=== PATIENT | female | born 1940 | race Caucasian/White ===

== ENCOUNTER 2021-04-12 10:32 | Emergency (ER) | payer MEDICARE, SELFPAY ==
[2021-04-12 11:00] VITALS: BP 141/95; PULSE 101; RESP 18; TEMP 36.5; O2SAT 97; BMI 20.9
--- NOTE | 2021-04-12 11:46 | ED.GENADULT ---
HPI - General Adult General Chief complaint: General Medical Stated complaint: dehydration,dizziness Time Seen by Provider: 04/12/21 11:46 Source: patient Mode of arrival: ambulatory Limitations: no limitations History of Present Illness HPI narrative: patient with recent compression fracture on oxycodone. Patient ended up with severe constipation eventually took a laxative. Patient has been drinking fluids but now having diarrhea. Today feeling weak and lightheaded. Onset (ago): day(s) Severity: mild Pain Consistency: constant Exacerbating factors: none Related Data Home Medications Medication Instructions Recorded Confirmed amlodipine 5 mg tablet 5 mg PO DAILY 03/23/21 03/23/21 letrozole 2.5 mg tablet 2.5 mg PO DAILY 03/23/21 03/23/21 lisinopril 40 mg tablet 40 mg PO DAILY 03/23/21 03/23/21 simvastatin 20 mg tablet 20 mg PO QPM 03/23/21 03/23/21 Previous Rx's Medication Instructions Recorded prednisone 20 mg tablet 20 mg PO .COMPLEX #18 tab 03/23/21 gabapentin 100 mg PO BID #20 cap 04/12/21 Allergies Allergy/AdvReac Type Severity Reaction Status Date / Time No Known Allergies Allergy Verified 04/12/21 10:59 [No Known Allergies*] Review of Systems Constitutional: Constitutional: Reports no additional constitutional complaints Eyes: Eyes: Reports no additional eye complaints ENT: Denies dizziness Cardiovascular: Cardiovascular: Reports no additional cardiovascular complaints Respiratory: Respiratory: Reports as per HPI Gastrointestinal: Gastrointestinal: Reports no additional gastrointestinal complaints Genitourinary: Genitourinary: Reports no additional female genitourinary complaints Musculoskeletal: Musculoskeletal: Reports no additional musculoskeletal complaints Integumentary/Breasts: Skin/Breast: Denies rash Neurologic: Reports system reviewed and no additional complaints, except as documented, Denies dizziness and Denies Sensory deficit (Neuro) Psychiatric: Psychiatric: Denies anxiety [facility] Past Medical History Medical History Breast cancer Compression fracture Diverticulitis High cholesterol Hypertension Osteoporosis Social History Social History Alcohol intake: never Patient Tobacco Use Status: Never used Tobacco Use of substances other than those prescribed or required for medical reasons: No Advance Directives: No Advance Directives Information Provided: No Physical Exam Vital Signs: Vital Signs: Last Vital Signs Temp 97.7 F 04/12/21 11:00 Pulse 83 04/12/21 12:48 Resp 17 04/12/21 12:48 BP 144/86 H 04/12/21 12:48 Pulse Ox 99 04/12/21 12:48 Body Mass Index 20.9 Const: Other: Thin frail female lying comfortably Orientation/consciousness: oriented to person and patient oriented x3 Limitations: no limitations HENMT: Head: Yes normal to inspection Ears: external ears normal General nose exam: Normal external nose present Mouth: Normal oral and palatal mucosa present and oropharynx normal Throat: Yes posterior oropharynx normal Eyes: General: appearance normal, both eyes and all related structures Neck: Other: supple Neck: Yes normal visual inspection Chest: Chest palpation & inspection: normal inspection of the chest Resp: Auscultation: clear to auscultation bilaterally Cardio: Other: tachycardic Rate: regular rate Rhythm: regular rhythm Heart sounds: S1 normal heart sound present and S2 normal heart sound present GI: Inspection: Yes normal to inspection Palpation (GI): Soft to palpation, nontender and No hepatosplenomegaly present Auscultation: normal bowel sounds : Other: rectal no fecal impaction General: Yes no CVA tenderness Back/Spine/Pelvis: Back: no CVA tenderness Skin: General skin exam: no rashes or lesions noted Neuro: General: oriented to person and patient oriented x3 Cranial nerves: Yes CN's II-XII intact bilaterally Motor exam (neuro): 5/5 motor strength present throughout Sensory Exam: No Sensory deficit (Neuro) Extrem: General: Yes normal to inspection Psych: Appearance: grossly normal Course Reevaluation(s) Reevaluation #1: EKG and blood work were normal, will start patient on gabapentin for radicular back pain. Will dc home Time: 13:33 Medical Decision Making Lab Data Result diagrams: 04/12/21 12:07 04/12/21 12:07 Labs: Lab Results 04/12/21 04/12/21 04/12/21 Range/Units 12:07 12:07 12:07 WBC 8.3 (4.8-10.8) X10*3/uL RBC 4.63 (4.20-5.50) X10*6/uL Hgb 12.2 (12.0-16.0) g/dl Hct 38.6 (37-47) % MCV 83.4 (80-98) fL MCH 26.3 L (27.0-33.0) pg MCHC 31.6 (31.0-35.0) g/dl RDW 15.9 (11.0-16.0) % Plt Count 390 (160-400) X10*3/uL MPV 10.5 (9.4-12.3) fL Immature Gran % (Auto) 0.2 (0.0-0.4) % Neut % (Auto) 77.3 H (45-73) % Lymph % (Auto) 13.8 L (20-40) % [place] % (Auto) 7.2 (2-11) % Eos % (Auto) 1.0 (0-4) % Baso % (Auto) 0.5 (0-2) % Lymph # (Auto) 1.1 L (1.2-4.9) X10*3/uL [place] # (Auto) 0.6 (0.1-1.2) X10*3/uL Eos # (Auto) 0.1 (0.0-0.4) X10*3/uL Baso # (Auto) 0.0 (0.0-0.2) X10*3/uL Abs Immat Gran (auto) 0.02 (0.00-0.03) X10*3/uL Absolute Neuts (auto) 6.4 (2.0-8.3) X10*3/uL Absolute Nucleated RBC 0.000 (0.0-0.012) X10*3/uL Nucleated RBC % (auto) 0.0 (0.0-0.2) /100WBC Sodium 139 (135-145) mmol/L Potassium 4.4 (3.3-5.1) mmol/L Chloride 101 (96-108) mmol/L Carbon Dioxide 31 H (22-29) mmol/L Anion Gap 11 L (12-20) BUN 8 L (9-16) mg/dL Creatinine 0.71 (0.5-1.4) mg/dL Estim Creat Clear Calc 43.1 Estimated GFR > 60 Random Glucose 97 (60-115) mg/dL Calcium 10.2 (8.4-10.2) mg/dL Troponin I High Sens 5.3 (<3.5-17.0) ng/L Discharge Plan Discharge Clinical Impression: Acute radicular low back pain, Compression fracture Patient Disposition: Home, Self-Care Instructions: Vertebral Compression Fracture (ED), Acute Low Back Pain (ED) Prescriptions: New gabapentin 100 mg capsule 100 mg PO BID Qty: 20 RF: 0 No Action letrozole 2.5 mg tablet 2.5 mg PO DAILY RF: 0 lisinopril 40 mg tablet 40 mg PO DAILY RF: 0 simvastatin 20 mg tablet 20 mg PO QPM RF: 0 amlodipine 5 mg tablet 5 mg PO DAILY RF: 0 prednisone 20 mg tablet 20 mg PO .COMPLEX Qty: 18 RF: 0 Referrals: Nadine Zacarias MD [Primary Care Provider] - 5 days
--- NOTE | 2021-04-12 11:56 | ECG_ITS ---
Test Reason : DIZZINESS Blood Pressure : / mmHG Vent. Rate : 089 BPM Atrial Rate : 089 BPM P-R Int : 136 ms QRS Dur : 078 ms QT Int : 358 ms P-R-T Axes : 028 -21 017 degrees QTc Int : 435 ms Sinus rhythm with occasional Premature ventricular complexes Otherwise normal ECG When compared with ECG of 23-APR-2020 10:32, No significant change was found Referred By: Kenan Rodríguez Electronically Signed By:Palomo Gonzalez
[2021-04-12 12:36] LABS: MANUAL DIFF FLAG NO
[2021-04-12 12:39] LABS: Basophils Percent Auto 0.5 % (0-2); Eosinophils Absolute Auto 0.1 X10*3/uL (0.0-0.4); Hematocrit 38.6 % (37-47); Hemoglobin 12.2 g/dl (12.0-16.0); Imm Gran Abs Auto 0.02 X10*3/uL (0.00-0.03); Imm Gran Pct Auto 0.2 % (0.0-0.4); Lymphocytes Absolute Auto 1.1 X10*3/uL (1.2-4.9); Lymphocytes Percent Auto 13.8 % (20-40); Mean Corpuscular HGB Conc 31.6 g/dl (31.0-35.0); Mean Corpuscular Hemoglobin 26.3 pg (27.0-33.0); Mean Corpuscular Volume 83.4 fL (80-98); Mean Platelet Volume 10.5 fL (9.4-12.3); Monocytes Absolute Auto 0.6 X10*3/uL (0.1-1.2); Monocytes Percent Auto 7.2 % (2-11); Neutrophils Absolute Auto 6.4 X10*3/uL (2.0-8.3); Neutrophils Percent Auto 77.3 % (45-73); Platelet Count 390 X10*3/uL (160-400); Red Blood Count 4.63 X10*6/uL (4.20-5.50); Red Cell Distribution Width 15.9 % (11.0-16.0); White Blood Count 8.3 X10*3/uL (4.8-10.8)
[2021-04-12] MEDS: 0.9 % Sodium Chloride 1,000 ML 999 ML IVCONT (12:44)
[2021-04-12 12:48] VITALS: BP 144/86; PULSE 83; RESP 17; O2SAT 99
[2021-04-12 13:08] LABS: Anion Gap 11 (12-20); Blood Urea Nitrogen 8 mg/dL (9-16); Calcium 10.2 mg/dL (8.4-10.2); Carbon Dioxide 31 mmol/L (22-29); Chloride 101 mmol/L (96-108); Creatinine Clr Calc Pharmacy 43.1; Estimated Glomerular Filt Rate > 60; Glucose Random 97 mg/dL (60-115); Potassium 4.4 mmol/L (3.3-5.1); Sodium 139 mmol/L (135-145)
[2021-04-12 13:11] LABS: Troponin-I High Sensitivity 5.3 ng/L (<3.5-17.0)
--- NOTE | 2021-04-12 13:32 | PC.NURSE ---
Patient is resting quietly in bed in no distress. IV fluids infusing. IV site is patent.
== END 2021-04-12 14:24 | disposition home or self-care (01) ==
PROVIDERS: Emergency Provider Emergency Medicine; PCP Internal Medicine
DX: M54.5 Low back pain (principal); M48.50XD Collapsed vertebra, not elsewhere classified, site unspecified, subsequent encounter for fracture with routine healing; K59.00 Constipation, unspecified; R19.7 Diarrhea, unspecified; I10 Essential (primary) hypertension; Z79.891 Long term (current) use of opiate analgesic; Z79.899 Other long term (current) drug therapy
CPT/HCPCS: 36415; 80048; 84484; 85025; 93005; 96360; 96361; 99284

== ENCOUNTER 2023-03-31 15:18 | Emergency (ER) | payer MEDICARE, SELFPAY ==
[2023-03-31 15:26] VITALS: BP 140/100; PULSE 90; RESP 18; TEMP 36.7; O2SAT 98; BMI 20.9
--- NOTE | 2023-03-31 15:28 | ED_ITS ---
HPI - General Adult General Chief complaint: Animal Bite Stated complaint: Bee stings Time Seen by Provider: 03/31/23 17:22 History of Present Illness HPI narrative: Patient complains of bee stings to the left thumb and forearm sustained yesterday, it was very itchy and woke her up last night, there is no pain, there is no other rash there is no difficulty breathing or swallowing no swelling of lips or tongue no dizziness no faintness no shortness of breath no trouble breathing Related Data Home Medications Medication Instructions Recorded Confirmed amlodipine 5 mg tablet 5 mg PO DAILY 03/23/21 03/23/21 letrozole 2.5 mg tablet 2.5 mg PO DAILY 03/23/21 03/23/21 lisinopril 40 mg tablet 40 mg PO DAILY 03/23/21 03/23/21 simvastatin 20 mg tablet 20 mg PO QPM 03/23/21 03/23/21 Previous Rx's Medication Instructions Recorded prednisone 20 mg tablet 20 mg PO .COMPLEX #18 tabs 03/23/21 gabapentin 100 mg capsule 100 mg PO BID #20 caps 04/12/21 hydrocortisone 2.5 % topical cream 1 appl topical BID PRN 03/31/23 Rash/itching #20 grams Allergies Allergy/AdvReac Type Severity Reaction Status Date / Time No Known Allergies Allergy Verified 04/12/21 10:59 [No Known Allergies*] [facility] Past Medical History Source: nursing notes reviewed Medical History Breast cancer Compression fracture Diverticulitis High cholesterol Hypertension Osteoporosis Social History Social History Alcohol intake: never Patient Tobacco Use Status: Never used Tobacco Advance Directives: No Advance Directives Information Provided: No Physical Exam ED Vital Signs: Vital Signs - 24 hr 03/31/23 15:26 Temperature 98.1 F Pulse Rate 90 Respiratory Rate 18 Blood Pressure 140/100 H Pulse Oximetry 98 Oxygen Delivery Method Room Air BMI result Body Mass Index 20.9 General appearance is no distress comfortable cooperative Eyes no redness or discharge The pharynx is clear without swelling of lips tongue or uvula membranes moist no redness swelling or exudate, voice normal Neck is supple Chest is clear to auscultation bilateral The skin exam there are 2 small bite wound moreira on left thumb and left forearm with mild surrounding erythema, it is not warm it is not tender, no swelling, full range of motion in all fingers and wrist, redness is slight and very localized around the bite moreira not consistent with cellulitis likely local inflammation Extremities full range of motion x4 Course Course Course Narrative: RME: 83 yold female presents to the ED for right thumb redness, itchy rash, swelling and right forearm area of redness wiht itcihness after being bittin by bee sting yesterday. negative for swelling lips, shortness of breath, allan swelling, sensation of throat closing, or spreading rash. Patient with local inflammation from bug bites, no cellulitis no systemic involvement comfortable breathing easily no swelling of lips or tongue no dizziness is discharged with prescription for hydrocortisone cream Discharge Plan Discharge Clinical Impression: Insect bite Patient Disposition: Home, Self-Care Additional Instructions: You have localized allergic irritation to the bug bites on arm and hand There is no cellulitis or infection, no sign of any dangerous allergic reaction in her body Use hydrocortisone cream as needed, you could also apply calamine lotion, ice sometimes helps relieve in a itch for brief period of time Return any time any worse condition or any concerns Prescriptions: New hydrocortisone 2.5 % cream 1 appl topical BID PRN (Reason: Rash/itching) Qty: 20 0RF No Action gabapentin 100 mg capsule 100 mg PO BID Qty: 20 0RF letrozole 2.5 mg tablet 2.5 mg PO DAILY lisinopril 40 mg tablet 40 mg PO DAILY simvastatin 20 mg tablet 20 mg PO QPM amlodipine 5 mg tablet 5 mg PO DAILY prednisone 20 mg tablet 20 mg PO .COMPLEX Qty: 18 0RF Rx Instructions: 20 mg PO 3 p.o. daily for 3 days followed by 2 p.o. daily for 3 days followed by 1 p.o. daily for 3 days;
[2023-03-31 17:52] VITALS: BP 137/83; PULSE 84; RESP 16; O2SAT 98
== END 2023-03-31 17:54 | disposition home or self-care (01) ==
PROVIDERS: Emergency Provider Internal Medicine; PCP Internal Medicine
DX: R21 Rash and other nonspecific skin eruption (principal); Z79.899 Other long term (current) drug therapy
CPT/HCPCS: 99283; 99284

== ENCOUNTER 2024-12-22 13:00 | Outpatient (AMB) | payer MEDICARE, SELFPAY ==
--- NOTE | 2024-12-22 13:18 | AM.OFFWIN_ITS ---
Intake Vital Signs 12/22/24 13:19 Weight 112 lb BP 110/70 Blood Pressure Location Rt brachial Position Sitting Pulse 106 H Pulse Source Pulse Oximeter Temp 99.8 F Temp Source Oral Pulse Oximetry (%) 97 Oxygen Delivery Method Room Air Intake Visit Reasons: EP congestion, chest cough Intake Note: Patient here for cough, congestion and chest congestion that started 2 days ago. Patient Tobacco Use Status: Never used Tobacco Allergies No Known Allergies [No Known Allergies*] Allergy (Verified 12/22/24 13:26) Do you need a note to return to daycare/school/sports/work: No HPI HPI Comments History of Present Illness Details History The patient is an 84-year-old female presenting with acute congestion, cough, fatigue, subjective fever and nausea. - The congestion started two days ago an d includes both head and chest symptoms. Coughing exacerbates the discomfort, preventing adequate sleep. - Nausea began yesterday, with no actual vomiting although the sensation of queasiness persisted. Diarrhea this morning, nothing bloody or black. - She has consumed minimal fluids. - Mild wheezing and past surgical histor y of breast cancer with mets to the right lung s/p removal of the tumor were mentioned, denies history of COPD, asthma, or smoking. Physical Exam General: Cooperative, healthy appearing, comfortable and no acute distress Orientation/consciousness: Patient oriented x3 Limitations: No limitations Head: Normal to inspection Ears: Hearing grossly normal bilaterally, external ears normal and TM's normal bilaterally Nose: Normal external nose present, Normal nares present and No nasal discharge present Face and sinus: Normal facial exam and Yes sinuses nontender Mouth: Normal oral and palatal mucosa present and moist mucous membranes Throat: Yes tonsils normal, Yes uvula midline. Posterior oropharynx erythema Eyes: Appearance normal, both eyes and all related structures Neck: Normal visual inspection Respiratory: dim to auscultation bilaterally. Normal respiratory effort, able to speak in complete sentences, Actively coughing, no respiratory distress, not tachypneic, no tripod positioning and no use of accessory muscles Cardiovascular: Regular rate and rhythm. Normal S1 and S2 Skin: No rashes or lesions noted Neuro: Patient oriented x3 Extremities: Normal to inspection and Yes no clubbing, cyanosis or edema PFSH Medical History Breast cancer Compression fracture Diverticulitis High cholesterol Hypertension Osteoporosis Social History Alcohol intake: never Patient Tobacco Use Status: Never used Tobacco Review of Systems Const All systems reviewed & are unremarkable except as noted in HPI and below Physical Exam Vital Signs: Last Vital Signs Temp 99.8 F 12/22/24 13:19 Pulse 106 H 12/22/24 13:19 BP 110/70 12/22/24 13:19 Pulse Ox 96 12/22/24 13:19 Oxygen Delivery Method Room Air 12/22/24 13:19 Assessment & Plan Assessment & Plan (1) Lower respiratory infection (e.g., bronchitis, pneumonia, pneumonitis, pulmonitis): Code(s): J22 - Unspecified acute lower respiratory infection Plan: Plan A chest x-ray has been arranged to assess for pneumonia. Recommendations include initiating an Vida-D regimen for congestion and maintaining hydration via electrolyte solutions such as sugar-free Gatorade to address dehydration. Due to her high blood pressure, Coricidin is suggested. I will notify the patient about potential Tamiflu therapy depending on flu confirmation and her gastrointestinal tolerance. A prescribed cough suppressant aims to improve sleep, with guidance on its prudent use during the day. We await results for flu, COVID-19, and RSV, with further plans contingent upon those findings, particularly concerning antibiotic therapy for potential pneumonia. Patient was informed and verbally consented to the use of an ambient scribe for clinic note documentation during this visit Orders: Orders SARS-CoV2/FLU/RSV Today R09.89 - Other specified symptoms and signs involving the circulatory and respiratory systems XR chest 2V Today R05.9 - Cough, unspecified Medications: New benzonatate 200 mg PO BEDTIME PRN 10 caps 0RF cough Coding Level of Care Code New Pt Level 4 (95981) Diagnoses Lower respiratory infection (e.g., bronchitis, pneumonia, pneumonitis, pulmonitis) J22
[2024-12-22 13:19] VITALS: BP 110/70; PULSE 106; TEMP 37.7; O2SAT 97
--- OUTSIDE RECORDS SUMMARY | 2024-12-22 16:10 | XMS_ITS | Clinical Summary ---
Author Organization [facility] Address [address] [place] [address] Care Team Providers Care Snow Groomer Name Role Phone Nadine Zacarias MD Primary Care Provider [phone] Allergies No known active allergies Medications Medication Sig Dispensed Refills Start Date End Date Status lisinopril (PRINIVIL,ZESTRIL) tablet 40 mg Take 1 tablet (40 mg total) by mouth daily. 0 Active amLODIPine (NORVASC) tablet 5 mg Take 1 tablet (5 mg total) by mouth daily. 0 Active indapamide (LOZOL) 1.25 MG tablet Take 1 tablet (1.25 mg total) by mouth every morning. 0 Active simvastatin (ZOCOR) tablet 20 mg Take 1 tablet (20 mg total) by mouth every night at bedtime. 0 Active Calcium Carbonate (CALCIUM 600 PO) Take by mouth. 0 Acti ve alendronate (FOSAMAX) tablet 70 mg Take 1 tablet (70 mg total) by mouth every 7 days. Take with water on empty stomach/Nothing by mouth and do not lie down for next 30 minutes 0 Active Cholecalciferol (VITAMIN D3) 2000 units TABS Take 400 Units by mouth daily. 0 Active Acetaminophen-Codeine 300-30 MG per tablet Take 1 tablet by mouth every 4 (four) hours as needed for pain. 0 Active letrozole (FEMARA) 2.5 MG tablet TAKE ONE TABLET BY MOUTH EVERY DAY 30 tablet 11 08/09/2024 Active Active Problems Problem Noted Date Diagnosed Date Age related osteoporosis 11/12/2022 Primary malignant neoplasm of breast with metast asis 09/19/2018 Malignant neoplasm of overla pping sites of left breast in female, estrogen receptor positive 09/19/2018 Social History Tobacco Use Types Packs/Day Years Used Date Smoking Tobacco: Never Assessed Sex and Gender Information Value Date Recorded Sex Assigned at Not on file Gender Identity Not on file Sexual Orientation Not on file Job Start Date Occupation Industry Not on file Not on file Not on file Last Filed Vital Signs Vital Sign Reading Time Taken Comments Blood Pressure 144/67 06/12/2024 10:01 AM EDT Pulse 83 06/12/2024 10:01 AM EDT Temperature 36.6 ??C (97.8 ??F) 06/12/2024 10:01 AM E DT Respiratory Rate - - Oxygen Saturation 97% 06/12/2024 10:01 AM EDT Inhaled Oxygen Concentration - - Weight 52.4 kg (115 lb 9.6 oz) 12/13/2023 10:53 AM EST Height 149.9 cm (4' 11 ) 06/13/2023 10:13 AM EDT Body Mass Index 23.35 06/13/2023 10:13 AM EDT Plan of Treatment Health Maintenance Due Date Last Done Comments Pneumococcal Vaccine (1 of 2 - PCV) 1947 Depression Screening 1953 Preventative Health Evaluation 1959 DTap / Tdap / Td (1 - Tdap) 02/02/1960 Shingrix-Zoster Vaccine (1 o f 2) 02/02/1960 Fall Risk Assessment 2006 Osteoporosis Screening (DEXA Scan) 2006 RSV Adult > 60+ Yrs or (1 - 1-dose 75+ series) 02/02/2016 COVID-19 Vaccine (3 - Pfizer risk series) 01/18/2021 12/21/2020, 11/30/2020 Influenza Vaccine (#1) 2024 Hepatitis B Vaccines Aged Out No long er eligible based on patient's age to complete this topic RSV Ped < 20 months Aged Out No longe r eligible based on patient's age to complete this topic Care Teams Snow Groomer Relationship Specialty Start Date End Date Nadine Zacarias MD [address] [place] [id number] PCP - General Internal Medicine 03/30/19
--- OUTSIDE RECORDS SUMMARY | 2024-12-22 16:10 | XMS_ITS | Clinical Summary ---
Author Organization [facility] Address [address] [place] [address] Phone Care Team Providers Care Parking Assistant Name Role Phone Nadine Zacarias MD Primary Care Provider [phone] Allergies No known active allergies Medications calcium carbonate (CALCIUM 600 ORAL) Take by mouth. Active acetaminophen-c odeine (TYLENOL #3) 300-30 mg per tablet Take 1 tablet by mouth Every 4 hours as needed (for pain.). Active alendronate (FOSAMAX) 70 mg tablet Take 1 tablet (70 mg total) by mouth every 7 (seven) days. Take with water on empty stomach/Noth ing by mouth and do not lie down for next 30 minutes Active amLODIPine (NORVASC) 5 mg tablet Take 1 tablet (5 mg total) by mouth 1 (one) time each day. Active cholecalciferol (VITAMIN D-3) 50 mcg (2,000 unit) tablet Take 400 Units by mouth 1 (one) time each day. Active indapamide (LOZOL) 1.25 mg tablet Take 1 tablet (1.25 mg total) by mouth 1 (one) time each day in the morning. Active letrozole (FEMARA) 2.5 mg tablet Take 1 tablet (2.5 mg total) by mouth 1 (one) time each day 08/19/2023 Active lisinopril (PRINIVIL,ZESTR IL) 40 mg tablet Take 1 tablet (40 mg total) by mouth 1 (one) time each day. Active simvastatin (ZOCOR) 20 mg tablet Take 1 tablet (20 mg total) by mouth at bedtime. Active Active Problems Problem Noted Date Diagnosed Date Malignant neoplasm of overla pping sites of left breast in female, estrogen receptor positive 07/03/2024 Age related osteoporosis 11/12/2022 Primary malignant neoplasm of breast with metast asis 09/19/2018 Encounters Date Type Department Care Team Description 12/15/2024 10:15 AM EST Office Visit [facility] Hematology Oncology [address] [place] [address] Herminio Pereyra MD Primary malignant neoplasm of breast with metastasis (CMS/HCC) (Primary Dx); Malignant neoplasm of overlapping sites of left breast in female, estrogen receptor positive (CMS/HCC) 10/28/2024 Telephone [facility] Hematology Oncology [address] [place] [address] Cori Jenkins MA Chest CT Appt from Last 3 Months Immunizations Name Administration Dates Next Due Pfizer SARS-CoV-2 COVID-19, mRNA, LNP-S, preservative free 12/21/2020,11/30/2020 Medical History Medical History Date Comments Breast cancer (CMS/HCC) DX:Breas t cancer (HCC) Hypertension DX:Hypertension Social History Tobacco Use Types Packs/Day Years Used Date Smoking Tobacco: Never Assessed Comments Unknown Sex and Gender Information Value Date Recorded Sex Assigned at Not on file Legal Sex Female 7:41 AM EST Gender Identity Not on file Sexual Orientation Not on file Obstetrics History Last Filed Vital Signs Vital Sign Reading Time Taken Comments Blood Pressure 122/72 12/15/2024 10:12 AM EST Pulse 92 12/15/2024 10:12 AM EST Temperature 37 ??C (98.6 ??F) 12/15/2024 10:12 AM EST Respiratory Rate - - Oxygen Saturation 98% 12/15/2024 10:12 AM EST Inhaled Oxygen Concentration - - Weight 51.7 kg (114 lb) 12/15/2024 10:12 AM EST Height 149.9 cm (4' 11 ) 06/13/2023 10:13 AM EDT Body Mass Index 23.03 06/13/2023 10:13 AM EDT Plan of Treatment Upcoming Encounters Date Type Department Care Team (Late st Contact Info) Description 06/15/2025 10:15 AM EDT Office Visit [facility] Hematology Oncology [address] [place] [address] Herminio Pereyra MD [address] [place] [address] Health Maintenance Due Date Last Done Comments DTaP,Tdap,and Td Vaccines (1 - Tdap) 02/02/1960 Zoster Vaccines (1 of 2) 02/02/1960 Cholesterol Screening (Lipid Panel) 09/29/2022 Depression Screening 09/29/2022 Falls Risk Assessment 09/29/2022 Osteoporosis Screening (Bone Density Screening) 09/29/2022 Social Influencers of Health Screening 09/29/2022 Medicare Annual Wellness Visit 08/03/2023 08/03/2022 Hypertension/CHF/CAD Annual BMP Blood Test 12/05/2025 12/05/2024 Pneumococcal Vaccine: 50+ Years Completed 07/04/2023 Influenza Vaccine Completed 08/05/2024, , 07/27/2022, Additional history exists COVID-19 Vaccine Completed 08/12/2024, 10/2022, 07/25/2022, Additional history exists RSV Immunization Patients 60+ Years Old Completed 09/04/2024 HIB Vaccines Aged Out No longer eligi ble based on patient's age to complete this topic HPV Vaccines Aged Out No longer eligi ble based on patient's age to complete this topic Hepatitis A Vaccines Aged Out No long er eligible based on patient's age to complete this topic Hepatitis B Vaccines Aged Out No long er eligible based on patient's age to complete this topic IPV Vaccines Aged Out No longer eligi ble based on patient's age to complete this topic MMR Vaccines Aged Out No longer eligi ble based on patient's age to complete this topic Meningococcal ACWY Vaccine Aged Out N o longer eligible based on patient's age to complete this topic Meningococcal B Vacine Aged Out No lo nger eligible based on patient's age to complete this topic RSV Immunization Patients Under 20 months Aged Out No longer eligible based on patient's age to complete this topic Varicella Vaccines Aged Out No longer eligible based on patient's age to complete this topic Insurance [facility]IC[facility] Care Teams Parking Assistant Relationship Specialty Start Date End Date Nadine Zacarias MD [address] [facility] [address] [id number] PCP - General Internal Medicine 03/30/19
--- OUTSIDE RECORDS SUMMARY | 2024-12-22 16:10 | XMS_ITS | Encounter Summary ---
Author Organization [facility] Address [id number] [place] [phone] Care Team Providers Care Surveillance Director Name Role Phone Nadine Zacarias MD Primary Care Provider Reason for Visit * Reason Comments Follow-up Encounter Details Date Type Department Care Team (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, estrogen receptor positive (CMS/HCC) Social History Tobacco Use Types Packs/Day Years Used Date Smoking Tobacco: Never Assessed Comments Unknown Sex and Gender Information Value Date Recorded Sex Assigned at Not on file Legal Sex Female 7:41 AM EST Gender Identity Not on file Sexual Orientation Not on file documented as of this encounter Last Filed Vital Signs Vital Sign Reading Time Taken Comments Blood Pressure 122/72 12/15/2024 10:12 AM EST Pulse 92 12/15/2024 10:12 AM EST Temperature 37 ??C (98.6 ??F) 12/15/2024 10:12 AM EST Respiratory Rate - - Oxygen Saturation 98% 12/15/2024 10:12 AM EST Inhaled Oxygen Concentration - - Weight 51.7 kg (114 lb) 12/15/2024 10:12 AM EST Height - - Body Mass Index 23.03 06/13/2023 10:13 AM EDT documented in this encounter Progress Notes * Herminio Pereyar MD - 12/15/2024 10:15 AM EST Diagnosis/treatment: Recurrent mucinous breast carcinoma. The patient remains on Femara since 2001. Interval history: The patient is a 84 yo F who presented in 1993 with a left-sided early stage mucinous breast cancertreated with lumpectomy and radiation. She had 2 sites of disease at 0.8 cm and 0.5 cm in the left breast at presentation. In 1997, she developed a locally recurrent left breast mucinous cancer, along with 2 sites of metastatic disease in the right lung within the same segment. She underwent a segmentectomy and started tamoxifen. In 2001, she had an enlarging right hilar node, which was the solitary site of recurrence by PET/CT. She underwent radiation to the right hilum. She has been on Femara since 2001 and tolerates it well despite some hot flashes and night sweats. She denies arthralgias. A DEXA scan in 04/2017 showed osteoporosis with a T score of -4.8 in the L spine, slightly worsened since a 10/2014 DEXA scan. A DEXA scan in 05/2019 showed osteoporosis with a T score of - 5.0 in the L-spine, slightly worsened compared with the previous DEXA scan in 04/2017. A DEXA scan in 07/2021 showed worsening osteoporosis with a T score of - 5.4 in the L-spine. The patient takes calcium and vitamin D. She took Fosamax in the past. She receives Reclast annually. She is following by an universal banker, Dr. Yanez. Serial CXRs showed no evidence of thoracic progression. A CXR on 01/16/2017 showed slightly increased prominence of the right hilum compared to the 05/23/[address] with contrast on 01/23/2017 showed no abnormality in the right hilum. There was a 1.3 cm hypodense lesion in the superior segmentof the right lobe of the liver. She fell on 03/21/2017 and developed upper back pain. A plain film showed a T5 compression fracture. The pain has lessened considerably and only occurs with overuse. The pain has not progressed over the last interval. A C/A/P CT on 09/09/2017 showed the T5 compression fracture and a stable liver cyst and no other findings. A CXR on 03/05/2019 showed right hilar prominence. There was a right lower lobe patchy opacity corresponding to the previously seen area of fibrosis and bronchiectasis with a possible 1.4 cm nodular spiculated density. A chest CT with contrast on 04/06/2019 showed stable findings compared to the 08/[address] without contrast on 04/12/2020 showed stable findings. She developed abdominal pain and diarrhea in 04/2020. She was admitted to [facility]. Alaina/P CT with IV and without oral contrast showed an acute colitis in the descending and sigmoid colon. A 1.0 cm cyst was seen in the hepatic segment 6 (15 HU). She completed a course of antibiotics and the symptoms resolved. She developed abdominal pain and tenderness following a meal in late 08/2021, which resolved. An A/P CT with IV and oral contrast on 09/21/2021 at [facility] showed a stable right hepatic lobe cyst and was otherwise unremarkable. She developed a sudden onset of bilateral lower back pain in mid-03/2021. A lumbar spine MRI on 04/03/2021 showed an acute moderate L4 superior endplate compression fracture with benign characteristics. The pain has lessened with conservative measures. She developed intermittent right hip pain radiating down her right leg, worse at bedtime, in 04/2021, which resolved. She took Tylenol with codeine at nighttime with relief. She reports an intact appetite. She reports weight loss from 122 pounds on 04/15/2020 down to 101 pounds on 05/12/2021 due to the abdominal issues and pain issues. Her weight was stable over the last interval. A chest CT with contrast on 11/03/2021 showed new diffuse circumferential wall thickening of the thoracic aorta and visualized abdominal aorta. There was a new 0.2 cm left upper lobe nodule. She was evaluated by a vascular surgeon, Dr. Duran, who assessed late radiation effect. She was evaluated by a director global strategic publisher sales, Dr. Deng, and extensive laboratory evaluation revealed noevidence of rheumatologic disease. A chest CT with contrast on 12/11/2022 showed stable findings. A chest CT with contrast on 12/09/2023 showed stable findings. A chest CT with IV contrast on 12/07/2024 showed stable findings. She denies cough, hemoptysis, or GUARDADO. She denies abdominal or bone pain. She is compliant with self exams and reports no concerns. She is compliant with annual MMGs, including the last in 04/2024, have been unremarkable. 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 She enjoys gardening. She prefers Peg. . Review of systems: The remainder of a 10 point review of systems was unremarkable. Physical examination: HEENT: Sclerae anicteric, normal oropharyngeal membrane. Neck: No lymphadenopathy. Lungs: Clear to auscultation. Heart: No murmurs. Breasts: No suspicious skin changes or masses bilaterally, no axillary lymphadenopathy bilaterally. Abdomen: Soft, nontender, no organomegaly or masses. Extremities: No edema. Skin: No rash. Neurologic: Normal gait. Assessment/plan: The patient is a 84 yo F with a recurrent mucinous breast cancer. She was treated in 2001 with radiation to a solitary site of recurrence in the right hilum. She has remained on Femara since 2001. She is tolerating therapy well. She has osteoporosis and is followed by an universal banker. She takes calcium and vitamin D supplementation. She receives Reclast annually. There is no clinical evidence of breast cancer progression. A CXR on 01/16/2017 showed slightly increased prominence of the right hilum compared to the 05/23/2016CXR. A chest CT with contrast on 01/23/2017 showed no abnormality in the right hilum. There was a 1.3cm hypodense lesion in the superior segment of the right lobe of the liver. A followup C/A/P CT in 08/2017 showed stable findings. She suffered a T5 compression fracture following a fall in early 03/2017. The pain has lessened considerably and has not progressed over the last interval, making a pathologic fracture unlikely. A CXR on 03/05/2019 showed right hilar prominence. A chest CT in mid-03/2019 showed stable findings compared with the 08/[address] in late 03/2020 showed stable findings. She developed an episode of colitis and diverticulitis in 04/2020. An A/P CT in 04/2020 showed a colitis diverticular diverticulitis and is otherwise unremarkable. She developed an episode of food poisoning in late 08/2020. An A/P CT in early 09/2020 showed a stable right hepatic lobe cyst and was otherwise unremarkable. She developed an L4 compression fracture in mid-03/2021. The pain has lessened with conservative measures. She has been referred to [facility] for pain management. She developed intermittent right hip pain radiating down her right leg, worse at bedtime, in 04/2021, likely due to an exacerbation of DJD, which resolved. A chest CT in 10/2021 showed new diffuse circumferential wall thickening of the thoracic aorta and visualized abdominal aorta. A vascular surgeon assessed the findings were due to radiation effect. A director global strategic publisher sales assessed no rheumatologic disease. A chest CT in 11/2022 showed stable findings. A chest CT in 11/2023 showed stable findings. A chest CT in 11/2024 showed stable findings. Visit summary: The patient is an 84-year-old female with a history of a recurrent mucinous breast cancer. She was treated in 2001 with radiation to a solitary site of recurrence in the right hilum. She has remainedon Femara since 2001. She is tolerating Femara well despite mild vasomotor symptoms. She has osteoporosis and is followed by an Gate Operator. We are monitoring annual chest CTs which have showed stable findings. However was on This encounter is of moderate risk. The patient has metastatic breast cancer, which is a life-threatening condition. She remains on anticancer therapy with letrozole. documented in this encounter Plan of Treatment Upcoming Encounters Date Type Department Care Team (Late st Contact Info) Description 06/15/2025 10:15 AM EDT Office Visit [facility] Hematology Oncology [address] [place] [phone] Herminio Pereyra MD [address] [place] [phone] documented as of this encounter Visit Diagnoses Diagnosis Primary malignant neoplasm of breast with metastasis (CMS/HCC)- Primary Malignant neoplasm of overlapping sites of left breast in female, estrogen receptor positive (CMS/HCC) documented in this encounter Care Teams Surveillance Director Relationship Specialty Start Date End Date Nadine Zacarias MD [address] [place] [id number] PCP - General Internal Medicine 03/30/19 documented as of this encounter
== END 2024-12-22 14:10 | disposition home or self-care (01) ==
PROVIDERS: PCP Internal Medicine; Visit Provider Physician Assistant
DX: J22 Unspecified acute lower respiratory infection (principal)

== ENCOUNTER 2024-12-22 13:00 | Outpatient (REF) | payer MEDICARE, SELFPAY ==
--- OUTSIDE RECORDS SUMMARY | 2024-12-22 17:11 | XMS_ITS | Clinical Summary ---
Author Organization [facility] Address [address] [place] [address] Phone Care Team Providers Care Manager Managing Name Role Phone Nadine Zacarias MD Primary Care Provider [phone] Allergies No known active allergies Medications calcium [...] Description 12/15/2024 10:15 AM EST Office Visit [facility] Hematology Oncology [address] [place] [address] Herminio Pereyra MD Primary malignant neoplasm of breast with metastasis (CMS/HCC) (Primary Dx); Malignant neoplasm of overlapping sites of left breast in female, estrogen receptor positive (CMS/HCC) 10/28/2024 Telephone [facility] Hematology Oncology [address] [place] [address] Cori Jenkins MA Chest CT [...] Description 06/15/2025 10:15 AM EDT Office Visit [facility] Hematology Oncology [address] [place] [address] Herminio Pereyra MD [address] [place] [address] Health Maintenance Due Date Last [...] age to complete this topic Insurance MEDICARE [facility] Care Teams Manager Managing Relationship Specialty Start Date End Date Nadine Zacarias MD [address] [facility] [address] [address] PCP - General Internal Medicine 03/30/19
--- OUTSIDE RECORDS SUMMARY | 2024-12-22 17:11 | XMS_ITS | Clinical Summary ---
Author Organization [facility] Address [address] [place] [address] Care Team Providers Care Ethnic Studies Professor Name Role Phone Nadine Zacarias MD Primary Care Provider [phone] Allergies No known active allergies Medications Medication [...] age to complete this topic Care Teams Ethnic Studies Professor Relationship Specialty Start Date End Date Nadine Zacarias MD [address] [place] [id number] PCP - General Internal Medicine 03/30/19
--- OUTSIDE RECORDS SUMMARY | 2024-12-22 17:11 | XMS_ITS | Encounter Summary ---
Author Organization [facility] Address [id number] [place] [phone] Care Team Providers Care Dag Sprayer Name Role Phone Nadine Zacarias MD Primary Care Provider [phone] Reason for Visit * Reason Comments Follow-up Encounter Details Date Type Department Care Team ([facility] st Contact Info) Description 12/15/2024 10:15 AM EST Office Visit [facility] Hematology Oncology [address] [place] [address] Herminio Pereyra MD [address] [place] [phone] Primary malignant neoplasm of breast with metastasis [...] in this encounter Progress Notes * Herminio Pereyra MD - 12/15/2024 10:15 AM EST Diagnosis/treatment: [...] Reclast annually. She is following by an lead pressman, Dr. Yanez. Serial CXRs showed no evidence [...] diarrhea in 04/2020. She was admitted to [facility]. Alaina/P CT with IV and without [...] IV and oral contrast on 09/21/2021 at [facility] showed a stable right hepatic lobe [...] radiation effect. She was evaluated by a stonehand, Dr. 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 She enjoys gardening. She prefers Peg. . [...] has osteoporosis and is followed by an lead pressman. She takes calcium and vitamin D supplementation. [...] measures. She has been referred to [facility] for pain management. She developed intermittent right hip pain radiating down her right leg, worse at bedtime, in 04/2021, likely due to an exacerbation of DJD, which resolved. A chest CT in 10/2021 showed new diffuse circumferential wall thickening of the thoracic aorta and visualized abdominal aorta. A vascular surgeon assessed the findings were due to radiation effect. A stonehand assessed no rheumatologic disease. A chest CT [...] has osteoporosis and is followed by an Forensic Dna Analyst. We are monitoring annual chest CTs which [...] Visit [facility] Hematology Oncology [address] [place] [phone] Herminio Pereyra MD [address] [place] [phone] documented as of this encounter Visit Diagnoses Diagnosis Primary malignant neoplasm of breast with metastasis (CMS/HCC)- Primary Malignant neoplasm of overlapping sites of left breast in female, estrogen receptor positive (CMS/HCC) documented in this encounter Care Teams Dag Sprayer Relationship Specialty Start Date End Date Nadine Zacarias MD [address] [place] [id number] PCP - General Internal Medicine 03/30/19 documented as of this encounter
[2024-12-22 17:30] LABS: Influenza A PCR POSITIVE (Negative); Influenza B PCR NEGATIVE (Negative); Resp Syncy Virus RNA Qual PCR NEGATIVE (Negative); SARS COV2 PCR INHOUSE NEGATIVE (Negative)
== END 2024-12-22 13:01 | disposition home or self-care (01) ==
LOC: HO.LAB 13:00
PROVIDERS: Physician Assistant; PCP Internal Medicine
DX: Z13.89 Encounter for screening for other disorder (principal)
CPT/HCPCS: 0241U; 99202

== ENCOUNTER 2024-12-22 13:47 | Outpatient (REF) | payer MEDICARE, SELFPAY ==
--- NOTE | ~2024-12-22 | XR_ITS ---
EXAMINATION: XR CHEST CLINICAL INFORMATION: R05.9 - Cough, unspecified COMPARISON: April 23, 2020 TECHNIQUE: 2 views of the chest were obtained. FINDINGS: Masslike opacity in the right pulmonary hilum. Pulmonary reticular nodular pattern right lung. No pleural effusion. No pneumothorax. Cardiomediastinal silhouette demonstrates a round apex and prominent aortic arch. L2 level thoracolumbar spondylosis with kyphotic deformity. Oral compression deformity in the upper thoracic vertebra representing 80% volume. Vascular clips left axillary region and decreased opacity left breast shadow. Old traumatic deformities in the lateral aspect ribs right hemithorax. XR/XR chest 2V IMPRESSION: Concerning right pulmonary perihilum are mass/lymphadenopathy with the questionable reticular nodular pulmonary pattern. Malignancy/lymphangitic carcinomatosis cannot be excluded. Electronically signed by: Carmelo Braun MD 12/22/2024 02:08 PM MARI
== END 2024-12-22 13:48 | disposition home or self-care (01) ==
LOC: HO.HMGCX 13:47
PROVIDERS: PCP Internal Medicine; Visit Provider Physician Assistant
DX: R05.9 Cough, unspecified (principal); J22 Unspecified acute lower respiratory infection
CPT/HCPCS: 0241U; 71046; 99202

== ENCOUNTER → 2024-12-22 13:50 | Outpatient (BNV) | payer MEDICARE, SELFPAY | PROVIDERS: PCP Internal Medicine; Visit Provider Radiology Diagnostic Radiology | DX: R05.9 Cough, unspecified (principal) | CPT/HCPCS: 71046 ==

== ENCOUNTER 2025-02-13 10:52 | Emergency (ER) | payer MEDICARE, SELFPAY ==
[2025-02-13] VITALS (7 sets, daily range): BP systolic 113–164; BP diastolic 76–99; PULSE 102–109; RESP 18–30; TEMP 36–36.5; O2SAT 92–94; BMI 21.9
--- NOTE | ~2025-02-13 | CT_ITS ---
CLINICAL HISTORY: SOB, abnormal chest xray CT angiography chest with contrast. 3D Postprocessing. Comparison: CR - XR CHEST 2V - 02/13/25 11:32 EDT CR/AR/SR - XR CHEST 2V - 12/22/24 14:00 EST Findings: Heart is enlarged. Unremarkable thoracic aorta and great vessels. No aneurysm. No pulmonary artery filling defects. Tortuous right lower lobe pulmonary artery without contrast filling defects. Subcentimeter mediastinal lymph nodes. Mild atelectatic change of the lung base. 3.6 mm pulmonary nodule of the right middle lobe series 6, image 61. 3.5 mm nodule of the right lower lobe image 87. Fibrotic change of the right lower lobe lung parenchyma with honeycombing. The visualized upper abdomen is unremarkable. Moderate compression fracture of the T5 vertebral body. IMPRESSION: No pulmonary embolus. Fibrotic change of the right lower lobe lung parenchyma with honeycombing. Tortuous right lower lobe pulmonary artery without evidence of pulmonary embolism. No hilar mass is seen. Small pulmonary nodules. Fleischner Society 2017 Guidelines for incidentally detected indeterminate nodules in persons 35 years of age or older. Single Solid Nodules: 5 mm or smaller nodules need no follow-up in low risk, and [address] follow-up is optional in high risk patients. 6-8 mm nodules have optional [address] follow-up in low risk, and 6-[address] follow-up followed by 18-[address] follow-up if no change in high risk patients. 9 mm or larger nodules should consider CT, PET/CT, or biopsy at 3 months regardless of patient risk. Multiple Solid Nodules: 5 mm or smaller nodules need no follow-up in low risk, and [address] follow-up is optional in high risk patients. 6-8 mm nodules need 3-[address] follow-up followed by an optional 18-[address] follow-up regardless of patient risk. 9 mm or larger nodules should consider 3-[address] follow-up. For low risk 18-24 month follow-up is optional, whereas for high risk it is needed. Single Ground Glass Nodules: 5 mm or smaller nodules need no followup 6 mm and larger nodules need CT at 6-12 months to confirm persistence, then CT every 2 years until 5 years Single Subsolid Nodules: 5 mm or smaller nodules need no followup 6 mm and larger nodules need CT at 3-6 months to confirm persistence. If no change and solid component /T/lt;6 mm, then CT every year until 5 years Multiple Ground Glass or Subsolid Nodules: 5 mm or smaller nodules need CT at 3-6 months. If stable, optional CT at 2 and 4 years. 6 mm or larger nodules need CT at 3-6 months. Subsequent management based on most suspicious nodule This document has been electronically signed by: Abel Norman MD on 02/13/2025 13:35:36
--- NOTE | ~2025-02-13 | XR_ITS ---
CLINICAL HISTORY: cough 2 view chest x-ray Comparison: CR/GA/SR - XR CHEST 2V - 12/22/24 14:00 EST Findings: Suspect right hilar mass with associated reticulation as previously noted. Normal size heart. No acute fracture. Surgical clips are again seen in the left axilla. IMPRESSION: Suspect right hilar mass with associated reticulation as previously noted. Please correlate with chest CT. This document has been electronically signed by: Foreign Waterman MD on 02/13/2025 11:59:32
--- NOTE | 2025-02-13 10:59 | ECG_ITS ---
Test Reason : CP Blood Pressure : */* mmHG Vent. Rate : 108 BPM Atrial Rate : 108 BPM P-R Int : 124 ms QRS Dur : 70 ms QT Int : 320 ms P-R-T Axes : 27 -32 4 degrees QTcB Int : 428 ms Sinus tachycardia Left axis deviation Minimal voltage criteria for LVH, may be normal variant ( [place] product ) Inferior infarct , age undetermined Abnormal ECG When compared with ECG of 12-Apr-2021 12:46, No significant changes seen Referred By: Generic ED Physician Electronically Signed By: YOEL SORTO
--- NOTE | 2025-02-13 11:15 | PC.NURSE ---
85 year-old female with PMHx of HTN, HDL, osteoporosis, breast cancer S/P lumpectomy and radiation currently on hormone therapy , presents to the Ed today due to cough with increased sputum production. She states she had felt a chest cold on Saturday (02/10) which has progressed and is now experiencing worsening cough and yellow sputum production. She states last night she was unable to get comfortable in bed and was not able to stop coughing. She reports feeling some mild shortness of breath when moving. She explains she has had breast cancer which had metastasized to lungs and had nodule removal and is now on hormone therapy. Patient alert and oriented. sanitation truck cleaner maintained and stach noted with occas PAC's. Lungs with coarse rhonchi and some wheezing throughout . Respirations even and non-labored at rest, but states dyspnea on exertion. Abdomen flat soft, non-tender with positive bowel sounds. Positive pedal pulses with no edema noted.
[2025-02-13 11:17] LABS: Basophils Percent Auto 0.6 % (0-2); Eosinophils Percent Auto 0.4 % (0-4); Hemoglobin 14.5 g/dl (12.0-16.0); Imm Gran Abs Auto 0.02 X10*3/uL (0.00-0.03); Imm Gran Pct Auto 0.4 % (0.0-0.4); Lymphocytes Absolute Auto 0.9 X10*3/uL (1.2-4.9); Lymphocytes Percent Auto 19.2 % (20-40); MANUAL DIFF FLAG NO; Mean Corpuscular Hemoglobin 28.5 pg (27.0-33.0); Mean Corpuscular Volume 86.4 fL (80.0-98.0); Mean Platelet Volume 10.4 fL (9.4-12.3); Monocytes Absolute Auto 0.7 X10*3/uL (0.1-1.2); Monocytes Percent Auto 15.2 % (2-11); Neutrophils Absolute Auto 3.1 x10*3/uL (2.0-8.3); Neutrophils Percent Auto 64.2 % (45-73); Platelet Count 261 X10*3/uL (160-400); Red Blood Count 5.09 X10*6/uL (4.20-5.50); Red Cell Distribution Width 15.4 % (11.0-16.0); White Blood Count 4.8 X10*3/uL (4.8-10.8)
--- NOTE | 2025-02-13 11:31 | ED.URI ---
HPI - URI/Sore Throat General Chief Complaint: Upper Respiratory Symptoms Stated Complaint: chest cold Time Seen by Provider: 02/13/25 11:30 Source: patient and family Mode of arrival: ambulatory Limitations: no limitations History of Present Illness ED Provider: Fifi Yuan APRN HPI Narrative: 85 year-old female with PMHx of HTN, HDL, osteoporosis, breast cancer S/P lumpectomy and radiation currently on hormone therapy , presents to the Ed today due to cough with increased sputum production. She states she had felt a chest cold on Saturday (02/10) which has progressed and is now experiencing worsening cough and yellow sputum production. She states last night she was unable to get comfortable in bed and was not able to stop coughing. She reports feeling some mild shortness of breath when moving. She explains she has had breast cancer which had metastasized to lungs and had nodule removal and is now on hormone therapy. She states she had a CT scan approximately one month ago which showed no progressional disease. She denies no recent travel, no recent surgery, hospitalizations, or sick contacts fever, lower extremity swelling, chest pain, nausea, vomiting, chills, sore throat, or diarrhea. Related Data Home Medications ?Medication ?Instructions ?Recorded ?Confirmed amlodipine 5 mg tablet 5 mg PO DAILY 03/23/21 03/23/21 letrozole 2.5 mg tablet 2.5 mg PO DAILY 03/23/21 03/23/21 lisinopril 40 mg tablet 40 mg PO DAILY 03/23/21 03/23/21 simvastatin 20 mg tablet 20 mg PO QPM 03/23/21 03/23/21 Previous Rx's ?Medication ?Instructions ?Recorded gabapentin 100 mg capsule 100 mg PO BID #20 caps 04/12/21 hydrocortisone 2.5 % topical cream 1 appl topical BID PRN 03/31/23 Rash/itching #20 grams benzonatate 200 mg capsule 200 mg PO BEDTIME PRN cough #10 12/22/24 caps ondansetron 4 mg disintegrating 4 mg PO Q8H PRN nausea and 12/23/24 tablet vomiting #15 tabs oseltamivir 75 mg capsule (Tamiflu) 75 mg PO Q12H 5 days #10 caps 12/23/24 benzonatate 200 mg capsule 200 mg PO TID PRN cough #15 caps 04/26/25 cefuroxime axetil 250 mg tablet 250 mg PO BID #14 tabs 02/13/25 prednisone 20 mg tablet 20 mg PO DAILY #5 tabs 02/13/25 Allergies Allergy/AdvReac Type Severity Reaction Status Date / Time No Known Allergies Allergy Verified 02/13/25 10:58 [No Known Allergies*] Review of Systems Review of Systems: Yes all other systems are reviewed and are negative Constitutional: Constitutional: Reports no additional constitutional complaints, Denies body ache(s), Denies chills, Reports difficulty sleeping, Denies fever(s), Denies headache(s), Reports lethargy, Reports poor appetite and Denies weakness Eyes: Eyes: Reports no additional eye complaints and Denies change in vision ENT: Reports system reviewed and no additional complaints, except as documented, Denies headache(s), Denies nasal congestion, Denies nasal discharge and Denies sore throat Cardiovascular: Cardiovascular: Reports no additional cardiovascular complaints, Denies chest pain, Denies leg edema and Reports dyspnea on exertion Respiratory: Respiratory: Reports no additional respiratory complaints, Reports cough, Reports dyspnea on exertion and Reports wheezing Gastrointestinal: Gastrointestinal: Reports no additional gastrointestinal complaints, Denies abdominal pain, Denies diarrhea, Denies nausea and Denies vomiting Genitourinary: Genitourinary: Reports no additional female genitourinary complaints Musculoskeletal: Musculoskeletal: Reports no additional musculoskeletal complaints, Denies back pain, Denies arthralgias and Denies joint swelling Integumentary/Breasts: Skin/Breast: Reports system reviewed and no additional complaints, except as docu Neurologic: Reports system reviewed and no additional complaints, except as documented, Denies headache(s) and Denies weakness Allergic/Immunologic: Allergic/Immunologic: Reports wheezing PMFSH Past Medical History Attestation statement: The following information was validated with the patient. Source: old records reviewed, obtained from family and nursing notes reviewed Medical History Diverticulitis High cholesterol Compression fracture Osteoporosis Breast cancer Hypertension Social History Social History Alcohol intake: never Patient Tobacco Use Status: Never used Tobacco Advance Directives: No Advance Directives Information Provided: No Physical Exam Vital Signs: Vital Signs: Last Vital Signs Temp 96.8 F 02/13/25 14:03 Pulse 103 H 02/13/25 14:03 Resp 20 02/13/25 14:03 BP 164/99 H 02/13/25 14:03 Pulse Ox 92 02/13/25 14:03 O2 Del Method Room Air 02/13/25 14:03 BMI result Body Mass Index 21.9 Const: General: cooperative, healthy appearing, comfortable and no acute distress Orientation/consciousness: patient oriented x3 Limitations: no limitations HEENT: Head: Yes normal to inspection and Yes atraumatic Ears: hearing grossly normal bilaterally and TM's normal bilaterally General nose exam: Normal external nose present Face and sinus: Yes normal facial exam Mouth: Normal oral and palatal mucosa present Throat: Yes posterior oropharynx normal, Yes tonsils normal and Yes uvula midline Eyes: General: appearance normal, both eyes and all related structures Pupils: Equal, round and reactive pupils present Neck: Neck: Yes normal visual inspection, Yes full ROM, Yes no lymphadenopathy and Yes no meningeal signs Chest: Chest palpation & inspection: normal inspection of the chest and normal palpation of entire chest wall Resp: Other: Left clear, right side coarse with expiratory wheezing Effort & Inspection: normal respiratory effort Cardio: Rate: tachycardic Rhythm: regular rhythm Peripheral pulses: Peripheral pulses 2+ throughout GI: Inspection: Yes normal to inspection Palpation (GI): Soft to palpation and nontender Back/Spine/Pelvis: Thoracic/Lumbar Spine: thoracic and lumbar spine normal to inspection Skin: General skin exam: no rashes or lesions noted Neuro: General: patient oriented x3, moves all extremities, no meningeal signs and normal sensation to monofilament Cranial nerves: Yes Equal, round and reactive pupils present Cognition (Neuro): normal cognition Extrem: General: Yes normal to inspection, Yes no pedal edema and Yes no calf tenderness Course Reevaluation(s) Reevaluation #1: 13:11- Chest x-ray reveals hilar mass, unclear if this is previous lung metastasis. Ordered CTA of chest to evaluate further. Reevaluation #2: 1500-Ct shows No pulmonary embolus. Fibrotic change of the right lower lobe lung parenchyma with honeycombing. Tortuous right lower lobe pulmonary artery without evidence of pulmonary embolism. No hilar mass is seen. Small pulmonary nodules. These may be changes secondary to patient receiving radiation in the past. Clinically she has wheezig, productive cough, improvement with bronchodilator. Oxygen saturation 96% with ambulation. Non-toxic. Patient will be discharged home with albuterol MDI, prednisone, cough suppressant and antibiotic. Reviewed worrisome signs/symptoms with patient and when to seek additional care. Comfortabe with plan for discharge home. Medications Administered Discontinued Medications Generic Name Dose Route Start Last Admin Trade Name Fly PRN Reason Stop Dose Admin Albuterol/Ipratropium 3 ml 02/13/25 11:40 02/13/25 11:43 Albuterol/Iprat 2.5/0.5mg 3 Ml Ampul.Neb INHALE 02/13/25 11:41 3 ml ONCE ONE Administration Ceftriaxone Sodium 2 gm 02/13/25 11:30 02/13/25 11:58 Ceftriaxone Sodium 2 Gm Vial IVPUSH 02/13/25 11:31 2 gm ONCE ONE Administration Sodium Chloride 1,000 mls @ 999 mls/hr 02/13/25 11:29 02/13/25 13:00 Ns IV 02/13/25 12:29 Infused .Q1H1M STA Infusion Iohexol 100 ml 02/13/25 12:27 02/13/25 12:28 Iohexol 350 Mg/Ml 100 Ml Infus..Btl IV 02/13/25 12:28 65 ml ONCE ONE Administration Medical Decision Making Medical Decision Making MDM Narrative: 85 year-old female with PMHx of HTN, HDL, osteoporosis, breast cancer S/P lumpectomy and radiation currently on hormone therapy , presents to the Ed today due to cough with increased sputum production. She states she had felt a chest cold on Saturday (02/10) which has progressed and is now experiencing worsening cough and yellow sputum production. She states last night she was unable to get comfortable in bed and was not able to stop coughing. She reports feeling some mild shortness of breath when moving. She explains she has had breast cancer which had metastasized to lungs and had nodule removal and is now on hormone therapy. She states she had a CT scan approximately one month ago which showed no progressional disease. She denies no recent travel, no recent surgery, hospitalizations, or sick contacts fever, lower extremity swelling, chest pain, nausea, vomiting, chills, sore throat, or diarrhea. 1130- vital signs reveal tachycardia at 108 BPM, tachypnea at 26 breaths per minute, and 93% on RA. She is in no acute distress and is non-toxic appearing. On physical exam patient exibits coars breath sounds on right side with expiratory wheezing. At this time infection is considerd I have ordered labs including blood cultures and lactic acid, viral testing, chest xray, fluids and antibiotics (ceftriaxone) for empirical treatment. Differential Diagnosis Differential Diagnoses: The differential diagnosis associated with the presentation includes viral illness, bronchitis, pneumonia,lung metastasis, pulmonary embolism, Admission/Observation Consideration of admission/observation: Escalation of care including admission/observation considered Lab Data MDM Lab Attestation statement: I reviewed the patient's lab results. 02/13/25 11:11 02/13/25 11:11 Labs: Lab Results 02/13/25 02/13/25 Range/Units 11:11 11:57 WBC 4.8 (4.8-10.8) X10*3/uL RBC 5.09 (4.20-5.50) X10*6/uL Hgb 14.5 (12.0-16.0) g/dl Hct 44.0 (37.0-47.0) % MCV 86.4 (80.0-98.0) fL MCH 28.5 (27.0-33.0) pg MCHC 33.0 (31.0-35.0) g/dl RDW 15.4 (11.0-16.0) % Plt Count 261 (160-400) X10*3/uL MPV 10.4 (9.4-12.3) fL Immature Gran % (Auto) 0.4 (0.0-0.4) % Neut % (Auto) 64.2 (45-73) % Lymph % (Auto) 19.2 L (20-40) % [place] % (Auto) 15.2 H (2-11) % Eos % (Auto) 0.4 (0-4) % Baso % (Auto) 0.6 (0-2) % Lymph # (Auto) 0.9 L (1.2-4.9) X10*3/uL [place] # (Auto) 0.7 (0.1-1.2) X10*3/uL Eos # (Auto) 0.0 (0.0-0.4) X10*3/uL Baso # (Auto) 0.0 (0.0-0.2) X10*3/uL Abs Immat Gran (auto) 0.02 (0.00-0.03) X10*3/uL Absolute Neuts (auto) 3.1 (2.0-8.3) x10*3/uL Absolute Nucleated RBC 0.000 (0.0-0.012) X10*3/uL Nucleated RBC % (auto) 0.0 (0.0-0.2) /100WBC Hold Blue Top SEE NOTE Sodium 135 (135-145) mmol/L Potassium 3.8 (3.3-5.1) mmol/L Chloride 102 (96-108) mmol/L Carbon Dioxide 25 (22-29) mmol/L Anion Gap 12 (12-20) BUN 12 (9-16) mg/dL Creatinine 0.83 (0.5-1.4) mg/dL Estim Creat Clear Calc 34.3 Estimated GFR > 60 Random Glucose 106 (60-115) mg/dL Lactic Acid 1.0 (0.5-2.0) mmol/L Calcium 9.5 D (8.4-10.2) mg/dL Total Bilirubin 0.4 (0.0-1.0) mg/dL AST 26 (5-31) U/L ALT 20 (0-31) U/L Alkaline Phosphatase 81 (39-117) U/L Troponin I High Sens 3.7 (<3.5-17.0) ng/L Total Protein 7.9 (6.5-8.0) g/dL Albumin 4.0 (3.5-5.0) g/dL Influenza Type A (PCR) NEGATIVE (Negative) Influenza Type B (PCR) NEGATIVE (Negative) RSV RNA Qual (PCR) NEGATIVE (Negative) SARS-CoV-2 RNA (RT-PCR) NEGATIVE (Negative) Independent Interpretation I performed an independent interpretation of an: EKG, Plain X-Ray and CT Scan Interpretation: I independently reviewed this EKG which shows sinus tachycardia with rate of 108, normal [place] normal QRS normal QT I independently reviewed CT scan and X-ray and agree with radiologists findings. Radiology Impression Discussion of test interpretation with radiology: I have reviewed the radiologist's reading. Radiologist Impression: CT scan CLINICAL HISTORY: SOB, abnormal chest xray CT angiography chest with contrast. 3D Postprocessing. Comparison: CR - XR CHEST 2V - 4/26/25 11:32 EDT CR/[place]/SR - XR CHEST 2V - 12/22/24 14:00 EST Findings: Heart is enlarged. Unremarkable thoracic aorta and great vessels. No aneurysm. No pulmonary artery filling defects. Tortuous right lower lobe pulmonary artery without contrast filling defects. Subcentimeter mediastinal lymph nodes. Mild atelectatic change of the lung base. 3.6 mm pulmonary nodule of the right middle lobe series 6, image 61. 3.5 mm nodule of the right lower lobe image 87. Fibrotic change of the right lower lobe lung parenchyma with honeycombing. The visualized upper abdomen is unremarkable. Moderate compression fracture of the T5 vertebral body. IMPRESSION: No pulmonary embolus. Fibrotic change of the right lower lobe lung parenchyma with honeycombing. Tortuous right lower lobe pulmonary artery without evidence of pulmonary embolism. No hilar mass is seen. Small pulmonary nodules. X-ray CLINICAL HISTORY: cough 2 view chest x-ray Comparison: CR/AZ/SR - XR CHEST 2V - 12/22/24 14:00 EST Findings: Suspect right hilar mass with associated reticulation as previously noted. Normal size heart. No acute fracture. Surgical clips are again seen in the left axilla. IMPRESSION: Suspect right hilar mass with associated reticulation as previously noted. Please correlate with chest CT. This document has been electronically signed by: Foreign Waterman MD on 02/13/2025 11:59:32 Independent Historian Clinical information obtained from an independent historian. History obtained from or confirmed by: Other (sister ) External Record Review External record reviewed: Inpatient record Discharge Plan Discharge Clinical Impression: Upper respiratory infection Patient Disposition: Home, Self-Care Instructions: Upper Respiratory Infection (ED) Additional Instructions: Return to the emergency department for increasing shortness of breath, chest pain, fever >100.4. Start your antibiotic tomorrow. Start prednisone, cough suppressant today. Use albuterol inhaler 2 puffs every 4 hours as needed for cough or wheezing. These are your CT results. Please follow-up with your outpatient providers. IMPRESSION: No pulmonary embolus. Fibrotic change of the right lower lobe lung parenchyma with honeycombing. Tortuous right lower lobe pulmonary artery without evidence of pulmonary embolism. No hilar mass is seen. Small pulmonary nodules. Fleischner Society 2017 Guidelines for incidentally detected indeterminate nodules in persons 35 years of age or older. Single Solid Nodules: 5 mm or smaller nodules need no follow-up in low risk, and [address] follow-up is optional in high risk patients. 6-8 mm nodules have optional [address] follow-up in low risk, and 6-[address] follow-up followed by 18-[address] follow-up if no change in high risk patients. 9 mm or larger nodules should consider CT, PET/CT, or biopsy at 3 months regardless of patient risk. Multiple Solid Nodules: 5 mm or smaller nodules need no follow-up in low risk, and [address] follow-up is optional in high risk patients. 6-8 mm nodules need 3-[address] follow-up followed by an optional 18-[address] follow-up regardless of patient risk. 9 mm or larger nodules should consider 3-[address] follow-up. For low risk 18-24 month follow-up is optional, whereas for high risk it is needed. Single Ground Glass Nodules: 5 mm or smaller nodules need no followup 6 mm and larger nodules need CT at 6-12 months to confirm persistence, then CT every 2 years until 5 years Single Subsolid Nodules: 5 mm or smaller nodules need no followup 6 mm and larger nodules need CT at 3-6 months to confirm persistence. If no change and solid component /T/lt;6 mm, then CT every year until 5 years Multiple Ground Glass or Subsolid Nodules: 5 mm or smaller nodules need CT at 3-6 months. If stable, optional CT at 2 and 4 years. 6 mm or larger nodules need CT at 3-6 months. Subsequent management based on most suspicious nodule Prescriptions: New prednisone 20 mg tablet 20 mg PO DAILY Qty: 5 0RF benzonatate 200 mg capsule 200 mg PO TID PRN (Reason: cough) Qty: 15 0RF cefuroxime axetil 250 mg tablet 250 mg PO BID Qty: 14 0RF No Action oseltamivir [Tamiflu] 75 mg capsule 75 mg PO Q12H 5 Days Qty: 10 0RF ondansetron 4 mg tablet,disintegrating 4 mg PO Q8H PRN (Reason: nausea and vomiting) Qty: 15 0RF gabapentin 100 mg capsule 100 mg PO BID Qty: 20 0RF hydrocortisone 2.5 % cream 1 appl topical BID PRN (Reason: Rash/itching) Qty: 20 0RF letrozole 2.5 mg tablet 2.5 mg PO DAILY lisinopril 40 mg tablet 40 mg PO DAILY simvastatin 20 mg tablet 20 mg PO QPM amlodipine 5 mg tablet 5 mg PO DAILY benzonatate 200 mg capsule 200 mg PO BEDTIME PRN (Reason: cough) Qty: 10 0RF Referrals: Nadine Zacarias MD [Primary Care Provider] - 1 week Print Language: [place]
[2025-02-13 11:36] LABS: Alanine Aminotransferase 20 U/L (0-31); Alkaline Phosphatase 81 U/L (39-117); Anion Gap 12 (12-20); Aspartate Amino Transferase 26 U/L (5-31); Bilirubin Total 0.4 mg/dL (0.0-1.0); Blood Urea Nitrogen 12 mg/dL (9-16); Calcium 9.5 mg/dL (8.4-10.2); Carbon Dioxide 25 mmol/L (22-29); Chloride 102 mmol/L (96-108); Creatinine Clr Calc Pharmacy 34.3; Estimated Glomerular Filt Rate > 60; Glucose Random 106 mg/dL (60-115); Potassium 3.8 mmol/L (3.3-5.1); Sodium 135 mmol/L (135-145); Total Protein 7.9 g/dL (6.5-8.0)
[2025-02-13 11:43] LABS: Troponin-I High Sensitivity 3.7 ng/L (<3.5-17.0)
[2025-02-13] MEDS: Albuterol/Iprat 2.5/0.5MG 3 ML AMPUL.NEB INHALE (11:43)
[2025-02-13 11:58] LABS: Influenza A PCR NEGATIVE (Negative); Influenza B PCR NEGATIVE (Negative); Resp Syncy Virus RNA Qual PCR NEGATIVE (Negative); SARS COV2 PCR INHOUSE NEGATIVE (Negative)
[2025-02-13] MEDS: 0.9 % Sodium Chloride 1,000 ML 999 ML IV (11:58)
[2025-02-13] MEDS: cefTRIAXone sodium 2 GM VIAL IVPUSH (11:58)
[2025-02-13] MEDS: iohexoL 350 MG/ML 100 ML INFUS..BTL IV (12:28)
[2025-02-13] MEDS: Albuterol Sulfate 90 MCG 8 GM INHALER 2 PUFF INHALE (15:25)
== END 2025-02-13 15:29 | disposition home or self-care (01) ==
PROVIDERS: Nurse Practitioner Family; Emergency Provider Emergency Medicine; PCP Internal Medicine
DX: J06.9 Acute upper respiratory infection, unspecified (principal); R05.9 Cough, unspecified; R11.2 Nausea with vomiting, unspecified; R00.0 Tachycardia, unspecified; R07.89 Other chest pain; Z79.899 Other long term (current) drug therapy; Z03.818 Encounter for observation for suspected exposure to other biological agents ruled out
CPT/HCPCS: 0241U; 36415; 71046; 71275; 80053; 83605; 84484; 85025; 87040; 93005; 94640; 96361; 96374; 99284; 99285; J0696; Q9967

== ENCOUNTER → 2025-02-13 10:59 | Outpatient (BNV) | payer MEDICARE, SELFPAY | PROVIDERS: Emergency Provider Emergency Medicine; PCP Internal Medicine; Visit Provider Internal Medicine | DX: R00.0 Tachycardia, unspecified (principal) | CPT/HCPCS: 93010 ==

== ENCOUNTER → 2025-02-13 10:59 | Outpatient (BNV) | payer MEDICARE, SELFPAY | PROVIDERS: PCP Internal Medicine; Visit Provider Radiology Diagnostic Radiology | DX: I28.8 Other diseases of pulmonary vessels (principal); R91.8 Other nonspecific abnormal finding of lung field; R05.9 Cough, unspecified | CPT/HCPCS: 71275 ==

== ENCOUNTER 2025-04-27 14:46 | Outpatient (AMB) | payer MEDICARE, SELFPAY ==
[2025-04-27 14:59] VITALS: BP 119/78; PULSE 91; O2SAT 98; BMI 22.6
--- NOTE | 2025-04-27 14:59 | A.OFFVIS_ITS ---
Vital Signs 04/27/25 14:59 Height 4 ft 11 in Weight 112 lb BMI 22.6 BP 119/78 Blood Pressure Location Lt brachial Position Sitting Pulse 91 Pulse Source Pulse Oximeter Pulse Oximetry (%) 98 Oxygen Delivery Method Room Air Intake Visit Reasons: Asthma/Hx of Lung CA Allergies No Known Allergies (No Known Allergies*) Allergy (Verified 04/27/25 15:07) HPI Comments Details: The patient is here for pulmonary evaluation. The patient is an 85 year woman presenting with worsening asthma symptoms. Apparently she was in her usual state health until back in 1993 where she was initially diagnosed with breast cancer on the left side. The patient did undergo surgery and radiation therapy at that time. Again in 1997 or around that time she was diagnosed with recurrent breast cancer on the left-hand side but also had pulmonary lesion on the right. Apparently she was diagnosed with cancer and she did undergo surgery I believe at [facility]. I can not find any pathology for that time unfortunately. She did receive also radiation to the chest resulting in significant radiation pneumonitis. She did remember having some difficulty breathing and coughing for prolonged period of time. Now she has significant traction bronchiectasis to the left lower lobe. She also has also pulmonary nodules in that area. She follows up closely with oncology. She gets CAT scans on a yearly basis at [facility]. I did review CAT scans from and also 2024. Her chronic bronchiectatic changes have not changed although she became sick more recently in December 2024 with influenza. She was starting to recover from that and then in January she started developing worsening cough chest congestion and shortness of breath. She came back to the hospital and had a chest x-ray that was abnormal with the opacity on the right inside and then underwent a CTA demonstrating the significant bronchiectatic changes but I do appreciate more airspace disease on the right lower lobe compared to previous likely from a superimposed infection. Currently the patient does feel better after being treated for an infection in the lower respiratory tract now is back to her baseline. She is not using any inhalers. She does have a nebulizer available in case she needs it. I will provide her an Acapella valve to help her with chest PT for the bronchiectasis. In the meantime the patient will follow-up in 6 months. She does have a CAT scan scheduled for December of 2025 at [facility] to follow-up her pulmonary nodules with the oncologist which is perfectly fine. [facility] Medical History (Updated 04/27/25 @ 21:38 by Jorge Cantor MD) Pulmonary nodules Bronchiectasis Diverticulitis High cholesterol Compression fracture Osteoporosis Breast cancer Hypertension Social History Alcohol intake: never Patient Tobacco Use Status: Never used Tobacco Review of Systems Const Denies fever(s) Eyes Reports no additional complaints ENT Denies nasal congestion Card Denies chest pain Resp Reports cough and Denies wheezing GI Reports no additional complaints Musc Reports no additional complaints Skin/Breast Denies rash Neuro Reports no additional complaints Aller/Immun Denies wheezing Physical Exam Vital Signs: Last Vital Signs Pulse 91 04/27/25 14:59 BP 119/78 04/27/25 14:59 Pulse Ox 98 04/27/25 14:59 Oxygen Delivery Method Room Air 04/27/25 14:59 BMI result Body Mass Index 22.6 Const General: comfortable HEENT Head: Yes normocephalic Neck Neck: Yes supple Chest Chest palpation & inspection: normal inspection of the chest Cardio Heart sounds: S1 normal heart sound present and S2 normal heart sound present GI Palpation (GI): Soft to palpation Skin General skin exam: no rashes or lesions noted Extrem General: Yes no clubbing, cyanosis or edema Assessment & Plan Assessment & Plan (1) Lower respiratory infection (e.g., bronchitis, pneumonia, pneumonitis, pulmonitis): Code(s): J22 - Unspecified acute lower respiratory infection Category: Medical (2) Bronchiectasis: Code(s): J47.9 - Bronchiectasis, uncomplicated Category: Medical Qualifiers: Bronchiectasis type: uncomplicated Qualified Code(s): J47.9 - Bronchiectasis, uncomplicated (3) Pulmonary nodules: Code(s): R91.8 - Other nonspecific abnormal finding of lung field Category: Medical Plan CT chest 12/2025 as per Oncology Start Acapella valve for CPT Nebulizer as needed F/U in 6 months Coding Level of Care Code New Pt Level 4 (27726) Diagnoses Lower respiratory infection (e.g., bronchitis, pneumonia, pneumonitis, pulmonitis) J22 Bronchiectasis without complication J47.9 Bronchiectasis type: uncomplicated Pulmonary nodules R91.8 Time Spent (min) 45
--- OUTSIDE RECORDS SUMMARY | 2025-04-27 15:38 | XMS_ITS | Clinical Summary ---
Author Organization [facility] Address [address] [place] [address] Care Team Providers Care Tower Attendant Name Role Phone Nadine Zacarias MD Primary Care Provider [phone] Allergies No known active allergies Medications Medication [...] 83 06/12/2024 10:01 AM EDT Temperature 36.6 C (97.8 F) 06/12/2024 10:01 AM EDT Respiratory Rate - - Oxygen Saturation 97% [...] series) 01/18/2021 12/21/2020, 11/30/2020 Influenza Vaccine (#1) 2025 Hepatitis B Vaccines Aged Out No long er eligible based on patient's age to complete this topic RSV Ped < 20 months Aged Out No longe r eligible based on patient's age to complete this topic Care Teams Tower Attendant Relationship Specialty Start Date End Date Nadine Zacarias MD [address] [place] [address] PCP - General Internal Medicine 03/30/19
--- OUTSIDE RECORDS SUMMARY | 2025-04-27 15:38 | XMS_ITS | Clinical Summary ---
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 ([facility] V24, [facility] V28) 09/19/2018 Immunizations Name Administration Dates Next Due Pfizer SARS-CoV-2 COVID-19, mRNA, LNP-S, preservative free 12/21/2020,11/30/2020 Medical History Medical History Date Comments Breast cancer ([facility] V24, [facility] V28) DX:Breast cancer (HCC) Hypertension DX:Hypertension Social History Tobacco [...] 92 12/15/2024 10:12 AM EST Temperature 37 C (98.6 F) 12/15/2024 10:12 AM EST Respiratory Rate - [...] Description 06/15/2025 10:15 AM EDT Office Visit [facility] H[facility]ology Oncology [address] [place] [address] Herminio Pereyra MD [address] [place] [address] Health Maintenance Due Date Last Done Comments DTaP,Tdap,and Td Vaccines (1 - Tdap) [birth year]02/1959 Zoster Vaccines (1 of 2) 02[birth year]02/1959 Cholesterol Screening (Lipid Panel) 09/29/2022 Depression Screening 09/29/2022 Falls Risk Assessment 09/29/2022 Osteoporosis Screening (Bone Density Screening) 09/29/2022 Social Influencers of Health Screening 09/29/2022 Medicare Annual Wellness Visit 08/03/2023 08/03/2022 COVID-19 Vaccine (8 - Pfizer risk season) 2025 08/12/2024, 08/21/2023, 07/25/2022, Additional history exists Influenza Vaccine (#1) 2025 , 08/05/2023, 07/27/2022, Additional history exists Hypertension/CHF/CAD Annual BMP Blood Test 12/05/2025 12/05/2024 Pneumococcal Vaccine: 50+ Years Completed 07/04/2023 RSV Immunization Adult Patients Completed 09/04/2024 HIB Vaccines Aged Out No [...] age to complete this topic Meningococcal B Vaccine Aged Out No l onger eligible based on patient's age to complete this topic RSV Immunization Patients Under 20 months Aged Out No longer eligible based on patient's age to complete this topic Varicella Vaccines Aged Out No longer eligible based on patient's age to complete this topic Insurance MEDICARE [facility] Care Teams Construction [employer] Relationship Specialty Start Date End Date Nadine Zacarias MD [address] [place] [id number] PCP - General Internal Medicine 03/30/19
== END 2025-04-27 15:33 | disposition home or self-care (01) ==
LOC: HO.HPS 14:54
PROVIDERS: PCP Internal Medicine; Referring Provider Internal Medicine; Visit Provider Hospitalist
DX: J22 Unspecified acute lower respiratory infection (principal); J47.9 Bronchiectasis, uncomplicated; R91.8 Other nonspecific abnormal finding of lung field
CPT/HCPCS: 99204

== ENCOUNTER → 2025-04-27 14:46 | Outpatient (BNVA) | payer MEDICARE, SELFPAY | PROVIDERS: PCP Internal Medicine; Referring Provider Internal Medicine; Visit Provider Hospitalist | DX: J47.9 Bronchiectasis, uncomplicated (principal); J22 Unspecified acute lower respiratory infection; R91.8 Other nonspecific abnormal finding of lung field | CPT/HCPCS: 99202 ==